=== PATIENT | male | born 1995 | race American Indian/Alaskan Native ===

== ENCOUNTER 2017-05-13 13:39 | Emergency (ER) | payer MEDICAID, OTHER ==
[2017-05-13 13:50] VITALS: TEMP 98.8
--- NOTE | 2017-05-13 14:14 | ED PDOC ---
Arrival/HPI - General Chief Complaint: Lower Extremity Problem/Injury Time Seen by Provider: 05/13/17 13:45 Historian: Patient - History of Present Illness Narrative History of Present Illness (Text): 05/13/17 14:11 22yr old male presents today with right ankle pain x 1 year. Patient states he had a severe ankle sprain/high ankle sprain about a year ago. Patient states ever since then he has been having continued pain with the ankle. Patient states it is affecting him while trying to get into shape. Patient states the pain has increased to the point where now he has pain even with slight range of motion of the ankle. He denies any recent trauma or injury. Denies numbness weakness or tingling in the extremity. Patient is complaining of pain with range of motion of the ankle. Denies calf pain. No medications have been taken for pain at home. No other complaints. Past Medical History - Provider Review Nursing Documentation Reviewed: Yes - Travel History Have you recently traveled outside [place] w/in the past 3 mons?: No - Psychiatric Hx Psychophysiologic Disorder: Yes Hx Anxiety: Yes Hx Depression: Yes Hx Substance Use: Yes Family/Social History - Physician Review Nursing Documentation Reviewed: Yes Family/Social History: Unknown Family HX Smoking Status: Current Some Days Smoker Hx Alcohol Use: Yes Frequency of alcohol use: Socially Hx Substance Use: Yes Allergies/Home Meds Allergies/Adverse Reactions: Allergies No Known Allergies Allergy (Verified 05/13/17 13:44) Review of Systems - Review of Systems Constitutional: absent: Fatigue, Fevers Respiratory: absent: SOB, Cough Cardiovascular: absent: Chest Pain, Palpitations Gastrointestinal: absent: Abdominal Pain, Nausea, Vomiting Genitourinary Male: absent: Dysuria Musculoskeletal: Arthralgias Skin: absent: Rash, Pruritis Neurological: absent: Headache, Dizziness Psychiatric: absent: Anxiety, Depression Physical Exam Vital Signs Reviewed: Yes Vital Signs Temp Pulse Resp BP Pulse Ox 05/13/17 13:44 98.8 F 71 16 127/68 97 Temperature: Afebrile Blood Pressure: Normal Pulse: Regular Respiratory Rate: Normal Appearance: Positive for: Well-Appearing, Non-Toxic, Comfortable Pain Distress: None Mental Status: Positive for: Alert and Oriented X 3 - Systems Exam Head: Present: Atraumatic Neck: Present: Normal Range of Motion Respiratory/Chest: Present: Clear to Auscultation, Good Air Exchange. No: Respiratory Distress, Accessory Muscle Use Cardiovascular: Present: Regular Rate and Rhythm, Normal S1, S2. No: Murmurs Lower Extremity: Present: Normal Inspection, NORMAL PULSES, Normal ROM, Tenderness (right ankle: no edema, no erythema; no ecchymosis; full rom of ankle ; sensation and distal pulses intact; cap refill <2. + minimal ttp over lateral aspect of ankle; no achilles tendon tenderness. no erythema. ), Temperature Abnormalties, Neurovascularly Intact. No: CALF TENDERNESS, Swelling, Erythema, Deformity, Capillary Refill < 2 s Neurological: Present: GCS=15, Speech Normal Skin: Present: Warm, Dry, Normal Color. No: Rashes Psychiatric: Present: Alert, Oriented x 3 Medical Decision Making ED Course and Treatment: 05/13/17 14:15 Patient nontoxic well-appearing in no distress with stable vital signs. pt with ankle pain x 1 year. X-rays of the right ankle; no fracture motrin po Patient placed in velcro ankle splint; crutches given for ambulation. I discussed all results in depth with the patient advised to followup with the orthopedist within the next 2 days. Advised return if symptoms worsen persist or new symptoms develop. i advised the patient that although the xrays show no fracture; there is still a possibility for ligamentous or tendon injury the patient must see the orthopedist for further evaluation. Patient verbalizes understanding of discharge instructions and need for immediate followup. all aspects of this case were discussed the attending of record. Impression: Ankle pain Motrin every 6 hours as needed for pain Rest, ice, compression, elevation Use crutches for ambulation Followup with the orthopedist within the next 2 days Followup with primary care physician within the next 2 days Return if symptoms worsen persist or if new symptoms develop - RAD Interpretation Radiology Orders: 05/13/17 14:10 ANKLE RIGHT 3 VIEWS ROUTINE [RAD] Stat - Medication Orders Current Medication Orders: Discontinued Medications Ibuprofen (Motrin Tab) 600 mg PO STAT STA Stop: 05/13/17 14:11 Last Admin: 05/13/17 14:17 Dose: 600 mg MAR Pain/Vitals Document 05/13/17 14:17 SF (Rec: 05/13/17 14:17 SF [id number]) Pain Reassessment Is This A Pain ReAssessment? Yes Sleep Is patient sleeping during reassessment? No Presence of Pain Presence of Pain Yes Pain Scale Used Pain Scale Used Numeric Disposition/Present on Arrival - Present on Arrival Any Indicators Present on Arrival: No History of DVT/PE: No History of Uncontrolled Diabetes: No Urinary Catheter: No History of Decub. Ulcer: No History Surgical Site Infection Following: None - Disposition Have Diagnosis and Disposition been Completed?: Yes Diagnosis: Ankle pain Disposition: HOME/ ROUTINE Disposition Time: 15:37 Patient Plan: Discharge Patient Problems: Current Active Problems Problem Status Onset Ankle pain Acute Condition: GOOD Additional Instructions: Motrin every 6 hours as needed for pain Rest, ice, compression, elevation Use crutches for ambulation Followup with the orthopedist within the next 2 days Followup with primary care physician within the next 2 days Return if symptoms worsen persist or if new symptoms develop Prescriptions: Ibuprofen [Motrin] 600 mg PO Q6H PRN #20 tab PRN Reason: pain/fever reduction Referrals: [facility] [place] [Outside] - Follow up with primary [facility] [place] [Outside] - Follow up with primary Marissa Ramsay MD [Staff Provider] - Follow up with primary Inder Aponte MD [Staff Provider] - Follow up with primary Bethany Cesar DPM [Staff Provider] - Follow up with primary Forms: [employer] (Bel[place]ian), WORK NOTE
[2017-05-13 16:19] VITALS: RESP 17; O2SAT 100
[2017-05-13 16:21] VITALS: BP 127/80; PULSE 67
--- NOTE | 2017-05-13 16:48 | RAD ---
PROCEDURE: Right Ankle Radiographs. HISTORY: ankle pain x 1 year COMPARISON: None FINDINGS: BONES: Normal. No fracture. JOINTS: Normal. No osteoarthritis. Ankle mortise maintained. Talar dome intact SOFT TISSUES: Normal. OTHER FINDINGS: None. IMPRESSION: Normal right ankle radiographs.
== END 2017-05-13 16:20 | disposition home or self-care (01) ==
LOC: ED 13:39
DX: M25.571 Pain in right ankle and joints of right foot (principal)